=== PATIENT | female | born 1965 | race Caucasian/White ===

== ENCOUNTER → 2017-06-28 | Outpatient (REF) | LOC: ZLAB.WCH 09:43 | DX: Z01.89 Encounter for other specified special examinations (principal) ==

== ENCOUNTER → 2017-07-29 | Outpatient (REF) ==
[2017-07-29 16:03] LABS: THYROID STIMULATING HORMONE 8.61 uIU/mL (0.465-4.680)
== END ==
LOC: ZLAB.WCH 14:58
PROVIDERS: Internal Medicine
DX: Z01.89 Encounter for other specified special examinations (principal)

== ENCOUNTER → 2017-10-21 | Outpatient (REF) | LOC: ZLAB.WCH 18:11 | DX: Z01.89 Encounter for other specified special examinations (principal) ==

== ENCOUNTER → 2017-12-20 | Outpatient (REF) | LOC: ZLAB.WCH 18:05 | DX: Z01.89 Encounter for other specified special examinations (principal) ==

== ENCOUNTER → 2018-03-15 | Outpatient (REF) ==
[2018-03-15 16:50] LABS: THYROID STIMULATING HORMONE 0.554 uIU/mL (0.465-4.680)
== END ==
LOC: ZLAB.WCH 15:53
PROVIDERS: Internal Medicine
DX: Z01.89 Encounter for other specified special examinations (principal)

== ENCOUNTER → 2018-03-25 | Outpatient (CLI) | payer MEDICARE | LOC: COL.LAB 11:25 | DX: Z01.812 Encounter for preprocedural laboratory examination (principal) ==

== ENCOUNTER → 2018-06-14 | Outpatient (REF) | LOC: ZLAB.WCH 09:13 | DX: Z01.89 Encounter for other specified special examinations (principal) ==

== ENCOUNTER 2018-08-02 13:55 | Inpatient (IN) | payer MEDICARE ==
[~2018-08-02] VITALS: Ht 185.4 cm; Wt 126.1 kg
[~2018-08-02 13:55] MED LIST: ASPI325T6 PO; CELEBREX 200MG200 MG PO; COREG 3.123.125 MG/T PO; CYANOCOBAL1000 MCG/1 SQ; DUO-KAPS1 CAP PO; ECHINACEA PO; ESTRACE 1MG1 MG/TAB PO; FLEXERIL 1010 MG/TAB PO; GLUCAGON EMERGEN1 M1 SQ; GLUTOSE 1515 GM PO; GOLDENSEAL PO; LEVEMIR100 U/ML SQ; NOVLOG SQ; NOVOLOG 100U100 U/M1 SQ; OYSCO 500500 M1 PO; PROVERA 2.5MG2.5 MG PO; ST. JOHN'S WORT PO; SYNTHROID 0.0.025 MG PO; SYNTHROID 0.10.15 MG PO; TYLENOL 500MG500 MG PO; ULTRAM 50MG TAB50 MG PO; VITAMINC500CH PO
[2018-08-02 17:11] VITALS: BP 146/67; PULSE 101; TEMP 99.7
[2018-08-02 17:24] VITALS: BP 146/67; PULSE 68; TEMP 99.7
[2018-08-03 05:05] VITALS: BP 133/66; PULSE 96; TEMP 98.2
[2018-08-03 14:45] LABS: BASO # 0.1 (0.0-0.2); BASO % 0.5 % (0.0-2.0); EOS # 0.2 (0.0-0.7); EOS % 1.8 % (0-4.0); GRAN # 6.7 (1.4-6.5); GRAN % 65.5 % (42.2-75.2); HEMATOCRIT 30.9 % (37.0-47.0); HEMOGLOBIN 9.9 g/dl (12.5-16.0); LYMPH # 2.3 (1.2-3.4); LYMPH % 22.6 % (20.0-51.0); MEAN CELL VOLUME 94 fl (80.0-100.0); MEAN CORPUSCULAR HEMOGLOBIN 30 pg (27.0-31.0); MEAN CORPUSCULAR HGB CONC 32 g/dl (33.0-37.0); MONO # 0.9 (0.1-0.6); MONO % 9.1 % (1.7-9.3); PLATELET COUNT 277 K/mm3 (130-400); RED BLOOD COUNT 3.28 M/mm3 (4.10-5.30); REDCELL DISTRIBUTION WIDTH-CV 13.5 % (11.5-14.5)
[2018-08-03 15:03] LABS: CALCIUM 9.4 mg/dL (8.4-10.2); CREATININE, serum 0.8 mg/dL (0.52-1.25); MAGNESIUM 1.9 mg/dL (1.6-2.3)
[2018-08-03 18:16] VITALS: BP 150/73; PULSE 98; TEMP 98.6
[2018-08-04 04:59] VITALS: BP 163/75; PULSE 98; TEMP 98.4
[2018-08-04 18:25] VITALS: BP 141/81; PULSE 95; TEMP 98.4
[2018-08-05 04:02] VITALS: BP 162/72; PULSE 93; TEMP 97.5
[2018-08-05 17:51] VITALS: BP 152/74; PULSE 96; TEMP 98.1
[2018-08-06 04:55] VITALS: BP 153/83; PULSE 91; TEMP 98.2
[2018-08-06 14:59] VITALS: BP 131/75; PULSE 90; TEMP 98.6
[2018-08-07 04:50] VITALS: BP 133/70; PULSE 82; TEMP 98.1
[2018-08-07 19:19] VITALS: BP 135/58; PULSE 97; TEMP 98.4
[2018-08-08 05:15] VITALS: BP 126/72; PULSE 87; TEMP 98.3
[2018-08-08 18:27] VITALS: BP 134/63; PULSE 89; TEMP 98.2
[2018-08-09 05:36] VITALS: BP 144/79; PULSE 85; TEMP 98.5
[2018-08-09 17:50] VITALS: BP 136/72; PULSE 86; TEMP 98.8
[2018-08-10 04:56] VITALS: BP 126/63; PULSE 89; TEMP 98.4
[2018-08-10 06:50] LABS: BASO % 0.3 % (0.0-2.0); EOS # 0.2 (0.0-0.7); EOS % 2.7 % (0-4.0); GRAN # 4.3 (1.4-6.5); GRAN % 57.7 % (42.2-75.2); LYMPH # 2.3 (1.2-3.4); MEAN CELL VOLUME 94 fl (80.0-100.0); MEAN CORPUSCULAR HGB CONC 32 g/dl (33.0-37.0); MONO # 0.6 (0.1-0.6); MONO % 7.5 % (1.7-9.3); PLATELET COUNT 329 K/mm3 (130-400); RED BLOOD COUNT 3.22 M/mm3 (4.10-5.30); REDCELL DISTRIBUTION WIDTH-CV 14.2 % (11.5-14.5)
[2018-08-10 06:56] LABS: HEMATOCRIT 30.1 % (37.0-47.0); HEMOGLOBIN 9.6 g/dl (12.5-16.0); MEAN CORPUSCULAR HEMOGLOBIN 30 pg (27.0-31.0)
[2018-08-10 07:00] LABS: CREATININE, serum 0.82 mg/dL (0.52-1.25); MAGNESIUM 1.9 mg/dL (1.6-2.3); POTASSIUM 4.9 mmol/L (3.4-5.0)
[2018-08-10 18:27] VITALS: BP 140/63; PULSE 92; TEMP 98.9
[2018-08-11 06:11] VITALS: BP 142/70; PULSE 89; TEMP 98.5
[2018-08-11 16:27] VITALS: BP 143/72; PULSE 91; TEMP 98.1
[2018-08-12 03:51] VITALS: BP 151/73; PULSE 85; TEMP 98.2
[2018-08-12] MEDS ORDERED: FLEXERIL 1010 MG/TAB PO (11:33)
[2018-08-12] MEDS ORDERED: FERROUS SU325 MG/TAB PO (11:33)
[2018-08-12] MEDS ORDERED: ULTRAM 50MG TAB50 MG PO (11:37)
[2018-08-12 15:59] VITALS: BP 138/77; PULSE 93; TEMP 98.4
== END 2018-08-12 18:20 | disposition home or self-care (01) | DRG 561 ==
PROVIDERS: Internal Medicine
DX: S72.141D Displaced intertrochanteric fracture of right femur, subsequent encounter for closed fracture with routine healing (principal); W18.30XD Fall on same level, unspecified, subsequent encounter; I12.9 Hypertensive chronic kidney disease with stage 1 through stage 4 chronic kidney disease, or unspecified chronic kidney disease; N18.9 Chronic kidney disease, unspecified; E11.22 Type 2 diabetes mellitus with diabetic chronic kidney disease; F43.12 Post-traumatic stress disorder, chronic; F31.9 Bipolar disorder, unspecified; E11.65 Type 2 diabetes mellitus with hyperglycemia; D64.9 Anemia, unspecified; R19.7 Diarrhea, unspecified; K58.1 Irritable bowel syndrome with constipation
CPT/HCPCS: 99222-AI; 99231-AI; 99232-AI; 99239; A9284; J1815

== ENCOUNTER 2018-10-20 11:00 | Outpatient (RCR) | payer MEDICARE, MEDICAID ==
[~2018-10-20 11:00] MED LIST changes: +FERROUS SU325 MG/TAB PO
== END 2018-11-17 | disposition home or self-care (01) ==
LOC: MKS.ESL.PT
DX: S72.144D Nondisplaced intertrochanteric fracture of right femur, subsequent encounter for closed fracture with routine healing (principal); W19.XXXD Unspecified fall, subsequent encounter; Z79.82 Long term (current) use of aspirin; Z79.4 Long term (current) use of insulin; Z79.899 Other long term (current) drug therapy
CPT/HCPCS: G8978-GP; G8979-GP

== ENCOUNTER → 2018-10-21 | Outpatient (REF) | LOC: ZLAB.WCH 16:31 | DX: Z01.89 Encounter for other specified special examinations (principal) ==

== ENCOUNTER 2018-12-07 11:39 | Emergency (ER) | payer MEDICARE ==
[~2018-12-07] VITALS: Ht 185.4 cm; Wt 113.6 kg
[2018-12-07 11:51] VITALS: BP 188/93
[2018-12-07 14:08] VITALS: PULSE 87; TEMP 98.7
== END 2018-12-07 14:08 | disposition home or self-care (01) ==
LOC: COL.ER 11:39
DX: S60.221A Contusion of right hand, initial encounter (principal); E11.9 Type 2 diabetes mellitus without complications; F43.10 Post-traumatic stress disorder, unspecified; F31.9 Bipolar disorder, unspecified; E05.00 Thyrotoxicosis with diffuse goiter without thyrotoxic crisis or storm; Z79.4 Long term (current) use of insulin; Z79.891 Long term (current) use of opiate analgesic; W06.XXXA Fall from bed, initial encounter; Y92.009 Unspecified place in unspecified non-institutional (private) residence as the place of occurrence of the external cause

== ENCOUNTER 2018-12-26 19:11 | Emergency (ER) | payer MEDICARE ==
[~2018-12-26] VITALS: Ht 185.4 cm; Wt 120.5 kg
[2018-12-26 19:30] VITALS: TEMP 99.2
[2018-12-26 20:43] LABS: BASO % 0.4 % (0.0-2.0); EOS # 0.1 (0.0-0.7); EOS % 1.3 % (0-4.0); GRAN # 4.6 (1.4-6.5); GRAN % 57.9 % (42.2-75.2); HEMOGLOBIN 11.3 g/dl (12.5-16.0); LYMPH # 2.7 (1.2-3.4); LYMPH % 34.1 % (20.0-51.0); MEAN CELL VOLUME 97 fl (80.0-100.0); MEAN CORPUSCULAR HEMOGLOBIN 31 pg (27.0-31.0); MEAN CORPUSCULAR HGB CONC 32 g/dl (33.0-37.0); MEAN PLATELET VOLUME 9.6 fl (7.4-10.4); MONO # 0.5 (0.1-0.6); PLATELET COUNT 313 K/mm3 (130-400); RED BLOOD COUNT 3.63 M/mm3 (4.10-5.30); REDCELL DISTRIBUTION WIDTH-CV 14.4 % (11.5-14.5)
[2018-12-26 20:50] LABS: HEMATOCRIT 35.2 % (37.0-47.0)
[2018-12-26 20:59] LABS: ALANINE AMINOTRANSFERASE < 6 U/L (9-52); ALBUMIN 4.5 gm/dL (3.5-5.0); ALKALINE PHOSPHATASE 131 U/L (50-136); ANION GAP 10 mmol/L (7-16); AST,SGOT 18 U/L (15-37); BILIRUBIN,TOTAL 0.5 mg/dL (0.0-1.0); BLOOD UREA NITROGEN 15 mg/dL (7-17); CALCIUM 10.3 mg/dL (8.4-10.2); CARBON DIOXIDE 23 mmol/L (22-30); CHLORIDE 107 mmol/L (98-107); CREATININE, serum 1.06 mg/dL (0.52-1.25); GLUCOSE 56 mg/dL (74-106); POTASSIUM 4.4 mmol/L (3.4-5.0); SODIUM 140 mmol/L (137-145); TOTAL PROTEIN 8.7 gm/dL (6.4-8.2)
[2018-12-26 22:09] VITALS: BP 135/86; PULSE 94
== END 2018-12-26 22:13 | disposition home or self-care (01) ==
LOC: COL.ER 19:11
PROVIDERS: Physician Assistant
DX: R58 Hemorrhage, not elsewhere classified (principal); R22.31 Localized swelling, mass and lump, right upper limb; R79.1 Abnormal coagulation profile; E10.9 Type 1 diabetes mellitus without complications
CPT/HCPCS: J1885

== ENCOUNTER → 2018-12-27 | Outpatient (CLI) | payer MEDICARE | LOC: COL.VAS 12:49 | DX: M79.89 Other specified soft tissue disorders (principal); S90.32XA Contusion of left foot, initial encounter; R79.89 Other specified abnormal findings of blood chemistry ==

== ENCOUNTER 2019-02-05 20:08 | Emergency (ER) | payer MEDICARE ==
[~2019-02-05] VITALS: Ht 185.4 cm; Wt 114.5 kg
[~2019-02-05 20:08] MED LIST changes: -SYNTHROID 0.10.15 MG PO; +SYNTHROID0.175 MG PO
[2019-02-05 20:16] VITALS: TEMP 98.8
[2019-02-05] MEDS ORDERED: GOLDEN SEAL RO325 MG PO (22:52)
[2019-02-05] MEDS ORDERED: ST. JOHN'S WOR250 MG PO (22:52)
[2019-02-06] MEDS ORDERED: FLEXERIL 1010 MG/TAB PO (00:40)
[2019-02-06] MEDS ORDERED: ULTRAM 50MG TAB50 MG PO (00:40)
[2019-02-06 00:57] VITALS: BP 151/75; PULSE 87
== END 2019-02-06 00:57 | disposition home or self-care (01) ==
LOC: COL.ER 20:08
DX: S93.602A Unspecified sprain of left foot, initial encounter (principal); I10 Essential (primary) hypertension; E11.9 Type 2 diabetes mellitus without complications; F43.10 Post-traumatic stress disorder, unspecified; E03.9 Hypothyroidism, unspecified; Z79.4 Long term (current) use of insulin; X50.0XXA Overexertion from strenuous movement or load, initial encounter; W01.0XXA Fall on same level from slipping, tripping and stumbling without subsequent striking against object, initial encounter; Y92.009 Unspecified place in unspecified non-institutional (private) residence as the place of occurrence of the external cause
CPT/HCPCS: Q4045

== ENCOUNTER → 2021-05-07 | Outpatient (CLI) | payer MEDICARE ==
[~2021-05-07] MED LIST changes: +GOLDEN SEAL RO325 MG PO; +ST. JOHN'S WOR250 MG PO
== END ==
LOC: DIA.ED 09:12
DX: E10.65 Type 1 diabetes mellitus with hyperglycemia (principal); E78.5 Hyperlipidemia, unspecified; I10 Essential (primary) hypertension
CPT/HCPCS: G0108

== ENCOUNTER → 2021-06-11 | Outpatient (CLI) | payer MEDICARE | LOC: DIA.ED 08:40 | DX: E10.65 Type 1 diabetes mellitus with hyperglycemia (principal); I10 Essential (primary) hypertension; E78.5 Hyperlipidemia, unspecified | CPT/HCPCS: G0108 ==

== ENCOUNTER → 2021-07-10 | Outpatient (CLI) | payer MEDICARE | LOC: DIA.ED 08:32 | DX: E10.40 Type 1 diabetes mellitus with diabetic neuropathy, unspecified (principal); I10 Essential (primary) hypertension; E78.5 Hyperlipidemia, unspecified ==

== ENCOUNTER → 2021-11-05 | Outpatient (CLI) | payer MEDICARE | LOC: DIA.ED 08:47 | DX: E10.40 Type 1 diabetes mellitus with diabetic neuropathy, unspecified (principal); E78.5 Hyperlipidemia, unspecified; I10 Essential (primary) hypertension ==

== ENCOUNTER → 2022-09-07 | Outpatient (CLI) | payer MEDICARE | LOC: DIA.ED 07:52 | DX: E10.65 Type 1 diabetes mellitus with hyperglycemia (principal); I10 Essential (primary) hypertension; E78.5 Hyperlipidemia, unspecified | CPT/HCPCS: G0270 ==

== ENCOUNTER 2022-12-22 01:15 | Observation (INO) | payer MEDICARE, MEDICAID ==
[2022-12-22] VITALS (596 sets, daily range): BP systolic 157–171; BP diastolic 81–84; PULSE 89–93; TEMP 97.9–99; O2SAT 77–100
[~2022-12-22] VITALS: Ht 185.4 cm; Wt 128.4 kg
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
[2022-12-22] MEDS ORDERED: TYLENOL 500MG500 MG PO (03:59)
[2022-12-22] MEDS ORDERED: SYNTHROID0.2 MG/TAB PO (04:14)
--- NOTE | 2022-12-22 05:01 | NUR ---
UPON ADMISSION PT ARRIVED WITH A LEFT LEG I/O PLACED BY EMS. EMS ATTEMPTED PERIPHERAL IV STICKS 8 TIMES UNSUCCESSFULLY BEFORE I/O PLACEMENT. PT CURRENTLY HAS A CGM (CONTINUOUS GLUCOSE MONITOR) IN HER RIGHT DELTOID. PT STATES SHE WILL NOT BE REMOVING CGM DUE TO COST OF DEVICE. PT ARRIVED WITH A SHIRT UNDERNEATH HER GOWN, SHIRT WAS TAKEN OFF DURING ASSESSMENT. AND PLACED ON THE COUNTER. PT HAS EARRING IN AND A SILICONE [place] BAND ON.
[2022-12-22] MEDS ORDERED: HYZAAR 50-12.1 UDTAB PO (06:07)
--- NOTE | 2022-12-22 08:18 | NUR ---
BEDSIDE REPORT RECEIVED FROM FARHAN CARTER. PT RESTING IN BED, DENIES PAIN OR N/V. VSS, PT ON ROOM AIR. I/O IN PLACE TO L LEG, NO DRIPS RUNNING AT THIS TIME. PT IS ALERT AND ORIENTED, USES CALL LIGHT FOR NEEDS.
[2022-12-22 09:24] LABS: BASO % 0.3 % (0.0-2.0); EOS % 0.2 % (0.0-4.0); GRAN # 8.5 K/mm3 (1.4-6.5); GRAN % 77.8 % (42.2-75.2); HEMOGLOBIN 11.1 g/dl (12.5-16.0); LYMPH # 1.5 K/mm3 (1.2-3.4); LYMPH % 13.8 % (20.0-51.0); MEAN CELL VOLUME 96 fl (80.0-100.0); MEAN CORPUSCULAR HEMOGLOBIN 32 pg (27-31); MEAN CORPUSCULAR HGB CONC 33 g/dl (33.0-37.0); MEAN PLATELET VOLUME 9.8 fl (7.4-10.4); MONO # 0.8 K/mm3 (0.1-0.6); MONO % 7.5 % (1.7-9.3); PLATELET COUNT 271 K/mm3 (130-400); RED BLOOD COUNT 3.52 M/mm3 (4.10-5.30); REDCELL DISTRIBUTION WIDTH-CV 12.7 % (11.5-14.5)
[2022-12-22 09:26] LABS: HEMATOCRIT 33.8 % (37.0-47.0)
[2022-12-22 09:38] LABS: CREATININE, serum 0.83 mg/dL (0.57-1.11)
--- NOTE | 2022-12-22 11:10 | NUR ---
Initial visit; Patient very sweet personality. Traci declined Spiritual Care. Sugar Reprocess Operator Head offered Blessings.
--- NOTE | 2022-12-22 11:13 | NUR ---
SW met with patient to complete intake. Patients Clark ([phone]) is present at bedside. Together, they share a home in [place]. Patient reports that she is able to complete some ADL's at home, but has to have her help her with showers. She states that her neighbor is currently applying to become her caregiver through [employer] and is also with with her insurance CM,[employer]ine. She does not utilize any DME to assist with ambulation and has no home oxygen needs. PCP is and they utilize [facility] in [place] for prescriptions. Patient does not have a DPOA-HC established and does not wish to create one at this time.
[2022-12-22] MEDS ORDERED: COZAAR 50MG50 MG/TAB PO (12:24)
--- NOTE | 2022-12-22 12:51 | NUR ---
PICC LINE PLACED BY AIVS NURSE. IO TO L TIBIA DISCONTINUED, NEEDLE INTACT AND BLEEDING WELL CONTROLLED, OCCLUSIVE DRESSING APPLIED. PT GIVEN PRN TRAMADOL, TYLENOL, FLEXERIL FOR PAIN TO L WRIST. MINIMAL SWELLING NOTED TO WRIST BUT PT DOES REPORT DECREASED RANGE OF MOTION. PT STATES THIS INJURY IS FROM FALL AT HOME PRIOR TO ADMISSION. XRAY COMPLETED.
--- NOTE | 2022-12-22 16:18 | NUR ---
SHORT ARM CAST APPLIED TO L ARM BY FARHAN GILES AND FARHAN WANG, ORDERED BY LUCIANA IGNACIO ORTHO PA. ORTHO APPT SCHEDULED 12/25/22 AT 1215, PT AWARE. PICC LINE TO R UPPER ARM REMOVED PRIOR TO DISCHARGE, BLEEDING WELL CONTROLLED, OCCLUSIVE DRESSING APPLIED, PT LAID FLAT 30 MIN AFTER REMOVAL. PT INSTRUCTED TO LEAVE DRESSING IN PLACE FOR 24 HRS. PT GIVEN DISCHARGE PACKET INCLUDING FOLLOW UP APPOINTMENTS, MEDICATION LIST, AND INSTRUCTION ON SPLINT/FRACTURE CARE AND PICC SITE CARE. ALL INSTRUCTIONS REVIEWED W/ PT AND , BOTH VERBALIZED UNDERSTANDING. PT ACCOMPANIED TO EXIT BY NURSE VIA WC. DISCHARGED AT 1601.
== END 2022-12-22 16:26 | disposition home or self-care (01) ==
LOC: IMCU 01:15 → ICU 02:20
PROVIDERS: Student in an Organized Health Care Education/Training Program; ADMIT Internal Medicine
DX: E10.649 Type 1 diabetes mellitus with hypoglycemia without coma (principal); E10.65 Type 1 diabetes mellitus with hyperglycemia; F31.9 Bipolar disorder, unspecified; E10.22 Type 1 diabetes mellitus with diabetic chronic kidney disease; I12.9 Hypertensive chronic kidney disease with stage 1 through stage 4 chronic kidney disease, or unspecified chronic kidney disease; F43.10 Post-traumatic stress disorder, unspecified; F44.81 Dissociative identity disorder; E89.0 Postprocedural hypothyroidism; N18.30 Chronic kidney disease, stage 3 unspecified; Z79.899 Other long term (current) drug therapy
CPT/HCPCS: C1751

== ENCOUNTER → 2023-02-01 | Outpatient (CLI) | payer MEDICARE, MEDICAID ==
[~2023-02-01] MED LIST changes: +COZAAR 50MG50 MG/TAB PO; +HYZAAR 50-12.1 UDTAB PO; +SYNTHROID0.2 MG/TAB PO
== END ==
LOC: DIA.ED
DX: E10.65 Type 1 diabetes mellitus with hyperglycemia (principal); I10 Essential (primary) hypertension; E78.5 Hyperlipidemia, unspecified
CPT/HCPCS: G0108

== ENCOUNTER 2024-05-05 21:12 | Emergency (ER) | payer MEDICARE, MEDICAID ==
[~2024-05-05] VITALS: Ht 185.4 cm; Wt 102.3 kg
[2024-05-05 21:16] VITALS: TEMP 98.3
[2024-05-05 22:42] LABS: BASO # 0.1 K/mm3 (0.0-0.2); BASO % 0.5 % (0.0-2.0); EOS # 0.1 K/mm3 (0.0-0.7); EOS % 0.6 % (0.0-4.0); GRAN # 16.3 K/mm3 (1.4-6.5); GRAN % 81.6 % (42.2-75.2); HEMOGLOBIN 10.3 g/dl (12.5-16.0); LYMPH # 2.2 K/mm3 (1.2-3.4); LYMPH % 10.8 % (20.0-51.0); MEAN CELL VOLUME 97 fl (80.0-100.0); MEAN CORPUSCULAR HEMOGLOBIN 31 pg (27-31); MEAN CORPUSCULAR HGB CONC 32 g/dl (33.0-37.0); MEAN PLATELET VOLUME 9.8 fl (7.4-10.4); MONO # 1.2 K/mm3 (0.1-0.6); MONO % 5.9 % (1.7-9.3); PLATELET COUNT 282 K/mm3 (130-400); RED BLOOD COUNT 3.32 M/mm3 (4.10-5.30); REDCELL DISTRIBUTION WIDTH-CV 13.4 % (11.5-14.5)
[2024-05-05 22:53] LABS: ERYTHROCYTE SEDIMENTATION RATE 11 mm/hr (0-30); HEMATOCRIT 32.3 % (37.0-47.0)
[2024-05-05 22:58] LABS: ALANINE AMINOTRANSFERASE 11 U/L (0-55); ALBUMIN 3.4 g/dL (3.5-5.0); ALKALINE PHOSPHATASE 93 U/L (40-150); ANION GAP 10 mmol/L (7-16); AST,SGOT 13 U/L (5-34); BILIRUBIN,TOTAL 0.3 mg/dL (0.2-1.2); BLOOD UREA NITROGEN 18 mg/dL (10-20); C-REACTIVE PROTEIN 2.09 mg/dL (0.00-0.50); CALCIUM 9.9 mg/dL (8.4-10.2); CHLORIDE 106 mEq/L (98-107); CREATININE, serum 1.29 mg/dL (0.57-1.11); GLUCOSE 100 mg/dL (70-99); POTASSIUM 3.5 mEq/L (3.5-4.5); SODIUM 139 mEq/L (136-145); TOTAL PROTEIN 6.8 g/dl (6.2-8.1)
[2024-05-05 23:09] LABS: LIPASE < 7 U/L (8-78)
[2024-05-05 23:18] LABS: TROPONIN-I < 0.010 ng/mL (0.00-0.033); TSH w REFLEX 0.182 uIU/mL (0.350-4.940)
[2024-05-05] MEDS ORDERED: Clindamycin 150 MG CAP PO ONE (23:45)
[2024-05-05] MEDS ORDERED: CLEOCIN HCL300 MG PO (23:56)
[2024-05-06 00:29] VITALS: BP 154/94; PULSE 103
== END 2024-05-06 00:11 | disposition home or self-care (01) ==
LOC: COL.ER 21:12
PROVIDERS: Emergency Medicine
DX: E10.649 Type 1 diabetes mellitus with hypoglycemia without coma (principal); L08.9 Local infection of the skin and subcutaneous tissue, unspecified; R41.82 Altered mental status, unspecified; D72.829 Elevated white blood cell count, unspecified; E03.9 Hypothyroidism, unspecified; R79.82 Elevated C-reactive protein (CRP); Z79.4 Long term (current) use of insulin